=== PATIENT | female | born 1980 | race Two or more races ===

== ENCOUNTER 2019-12-28 11:19 | Outpatient (CLI) | payer OTHER ==
[2020-01-02] MEDS ORDERED: NONE PER PT (05:48)
[2020-01-02] MEDS ORDERED: MIDAZOLAM 1 MG/ML, 2ML ONE (06:54)
[2020-01-02] MEDS ORDERED: FENTANYL PF 100 MCG/2ML ONE (06:54)
[2020-01-02] MEDS ORDERED: NEOSTIGMINE 1 MG/ML, 10ML ONE (07:04)
[2020-01-02] MEDS ORDERED: SUCCINYLCHOLINE 20 MG/ML, 10ML ONE (07:04)
[2020-01-02] MEDS ORDERED: CEFAZOLIN 1,000 MG ONE (07:04)
[2020-01-02] MEDS ORDERED: GLYCOPYRROLATE 0.2MG/1ML, 5ML ONE (07:04)
[2020-01-02] MEDS ORDERED: DEXAMETHASONE 4 MG/ML, 1ML ONE (07:04)
[2020-01-02] MEDS ORDERED: ONDANSETRON 2MG/ML, 2ML ONE (07:04)
[2020-01-02] MEDS ORDERED: PROPOFOL 10 MG/ML, 20ML ONE (07:04)
[2020-01-02] MEDS ORDERED: ROCURONIUM 10MG/ML,5ML ONE (07:04)
== END 2019-12-28 23:59 | disposition home or self-care (01) ==
LOC: STAR 11:19
PROVIDERS: ATTEND Anesthesiology
DX: Z01.818 Encounter for other preprocedural examination (principal); Z11.59 Encounter for screening for other viral diseases
CPT/HCPCS: 36415; 87635